=== PATIENT | female | born 1970 | race Caucasian/White ===

== ENCOUNTER 2017-09-26 17:10 | Emergency (ER) | payer SELFPAY ==
[~2017-09-26] VITALS: Ht 170.2 cm; Wt 49.9 kg
[2017-09-26] MEDS ORDERED: NITROGLYCERIN 2% OINT 1 GM PKT TOP STA (17:40)
[2017-09-26] MEDS ORDERED: ASPIRIN 81 MG CHEW TAB PO STA (17:40)
[2017-09-26] MEDS ORDERED: ASPIRIN 81 MG CHEW TAB PO ONE (17:45)
[2017-09-26 17:51] LABS: BILIRUBIN,URINE NEGATIVE (NEGATIVE); KETONES,URINE NEGATIVE (NEGATIVE); LEUKOCYTE ESTERASE ,URINE 2+ (NEGATIVE); NITRITE,URINE NEGATIVE (NEGATIVE); URINE UROBILINOGEN 0.2 mg/dL (0.2 - 1)
[2017-09-26 17:53] LABS: CLARITY,URINE SL CLOUDY (CLEAR); COLOR,URINE YELLOW (YELLOW); PROTEIN,URINE DIPSTICK 1+ (NEGATIVE)
[2017-09-26 18:10] LABS: BACTERIA,URINE RARE /HPF; EPITHELIAL CELLS,URINE FEW /LPF; RBC,URINE 0-5 /HPF (0-5)
--- NOTE | 2017-09-26 18:22 | Diagnostic Imaging Report ---
PROCEDURE: CHEST SINGLE (PORTABLE) COMPARISON: None. INDICATIONS: VOMITING,SOB,CHEST PAIN FINDINGS: The lungs are well-inflated. Small left pleural effusion with adjacent probable passive atelectasis of the left lung base. No additional consolidation. No pneumothorax. Mild enlargement of the cardiac silhouette with prominence of the central pulmonary vasculature. No acute osseous abnormalities. Probable intra-articular osteochondral fragments within the axillary recess of the left glenohumeral joint. CONCLUSION: Mild cardiomegaly with pulmonary venous congestion and a small left pleural effusion. Dictated by: Derrick Osuna M.D. on 09/26/2017 at 18:30 Electronically approved by: Derrick Osuna M.D. on 09/26/2017 at 18:30
== END 2017-09-26 19:57 | disposition short-term general hospital (02) ==
LOC: ER 17:10
DX: R11.10 Vomiting, unspecified (principal); R07.9 Chest pain, unspecified
CPT/HCPCS: 71010; 81001; 87086; 87400; 93005